=== PATIENT | female | born 1995 | race Caucasian/White ===

== ENCOUNTER 2018-11-08 20:32 | Emergency (ER) | payer OTHER ==
[~2018-11-08] VITALS: Ht 165.1 cm; Wt 54.4 kg
[2018-11-08 20:41] VITALS: BP 124/76
--- NOTE | 2018-11-08 20:41 | NUR ---
22/F PRESENTS TO ED WITH BOYFRIEND, C/O SORE THROAT, DIFFICULTY SWALLOWING AND SPEAKING DUE TO PAIN, HEADACHE, INTERMITTENT NAUSEA, AND SLIGHT COUGH, ALL STARTED TODAY. PT RECENTLY RETURNED FROM A 1 WEEK [facility]ICAL [place] TRIP FROM [facility] LAST NIGHT. DENIES CP, SOB, VOMITING. PT AOX4, SKIN NORMAL WARM AND DRY, RR EVEN AND UNLABORED. DENIES MED HX, RX OR OTC
[2018-11-08 21:45] VITALS: BP 123/68
[2018-11-08] MEDS ORDERED: IBUPROFEN 400 MG TAB PO ONE (21:45)
[2018-11-08] MEDS ORDERED: ACETAMINOPHEN 325 MG TAB PO ONE (21:45)
--- NOTE | 2018-11-08 22:20 | NUR ---
Dr. Carroll at bedside
--- NOTE | 2018-11-08 22:36 | NUR ---
Patient discharged by Dr. Carroll. Written and verbal after care instructions given and explained by Dr. Carroll. Ambulatory with steady gait. All questions addressed prior to discharge by Dr. Carroll. ID band removed by Dr. Carroll. Patient advised to follow up with PMD. Rx of augmentin given by Dr. Carroll. Patient educated on indication of medication including possible reaction and side effects by Dr. Carrlol. Opportunity to ask questions provided and answered by Dr. Carroll.
== END 2018-11-08 22:36 | disposition home or self-care (01) ==
LOC: MED 20:32
DX: J02.9 Acute pharyngitis, unspecified (principal)
CPT/HCPCS: 99283